=== PATIENT | male | born 2000 | race Hispanic/Latino ===

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

== ENCOUNTER 2023-10-18 17:25 | Emergency (ER) | payer MEDICAID ==
[~2023-10-18] VITALS: Ht 162.6 cm; Wt 79.4 kg
[2023-10-18 17:59] LABS: ADD UA MICROSCOPIC YES; APPEARANCE,URINE HAZY (CLEAR); BILIRUBIN,URINE NEGATIVE (NEGATIVE); COLOR,URINE YELLOW (YELLOW); GLUCOSE, URINE (UA) 30 mg/dL (NEGATIVE); KETONES,URINE NEGATIVE (NEGATIVE); LEUKOCYTE ESTERASE ,URINE 500 Leu/uL (NEGATIVE); NITRATE,URINE NEGATIVE (NEGATIVE); PROTEIN,URINE 30 mg/dL (NEGATIVE)
[2023-10-18 18:05] LABS: BACTERIA,URINE FEW /HPF (None Seen); MUCUS,URINE RARE LPF (None Seen); WBC,URINE TNTC /HPF (0-1)
[2023-10-18 18:15] VITALS: BP 127/85; PULSE 85; RESP 18; O2SAT 100
[2023-10-18] MEDS ORDERED: DOXY-252 PO (18:28)
[2023-10-18] MEDS: LIDOCAINE HCL 1% 20 ML VIAL ONE (18:42)
[2023-10-18] MEDS: CEFTRIAXONE 1G VIAL IM ONE (18:42)
== END 2023-10-18 18:48 | disposition home or self-care (01) ==
LOC: EDH 17:25
DX: N34.2 Other urethritis (principal); Z20.2 Contact with and (suspected) exposure to infections with a predominantly sexual mode of transmission; Z90.49 Acquired absence of other specified parts of digestive tract; Z98.890 Other specified postprocedural states
CPT/HCPCS: 99283; 87088; 87797; 87486; 81001; 96372; J0696